=== PATIENT | female | born 1985 | race Caucasian/White ===

== ENCOUNTER 2024-06-13 18:48 | Emergency (ER) | payer BC, OTHER ==
[~2024-06-13] VITALS: Ht 162.5 cm; Wt 68.0 kg
== END 2024-06-13 19:54 | disposition home or self-care (01) ==
LOC: ED 18:48
DX: S80.212A Abrasion, left knee, initial encounter (principal); T22.012A Burn of unspecified degree of left forearm, initial encounter; M54.2 Cervicalgia; V89.2XXA Person injured in unspecified motor-vehicle accident, traffic, initial encounter; Y93.I9 Activity, other involving external motion; Y92.488 Other paved roadways as the place of occurrence of the external cause; Y99.8 Other external cause status